=== PATIENT | female | born 1935 ===

== ENCOUNTER 2018-07-25 18:12 | Inpatient (IN) | payer OTHER ==
[~2018-07-25] VITALS: Ht 160 cm; Wt 45.4 kg
[2018-07-25] MEDS ORDERED: INTESTINEX680 M1 (18:19)
[2018-07-25] MEDS ORDERED: PANTOPRAZOLE SO40 MG (18:19)
[2018-07-25] MEDS ORDERED: ROBINUL FORTE2 MG (18:20)
[2018-07-25] MEDS ORDERED: LABETALOL HCL300 MG (18:20)
[2018-07-25] MEDS ORDERED: PAXIL20 MG (18:20)
[2018-07-25] MEDS ORDERED: ALDACTONE25 MG (18:20)
[2018-07-25] MEDS ORDERED: RANITIDINE HCL300 M1 (18:21)
[2018-07-25] MEDS ORDERED: APETIGEN-PLUS1 EACH (18:21)
== END 2018-08-01 16:45 | disposition home or self-care (01) | DRG 392 ==
LOC: ER 18:12 → MEDI 07-26 14:13 → SEC-K 07-26 14:13 → MEDI 07-26 16:18
PROC: BW25Y0Z Computerized Tomography (CT Scan) of Chest, Abdomen and Pelvis using Other Contrast, Unenhanced and Enhanced (ICD-10-PCS; principal; 2018-07-26)
PROC: 3E0F7GC Introduction of Other Therapeutic Substance into Respiratory Tract, Via Natural or Artificial Opening (ICD-10-PCS; 2018-07-29)
DX: K29.00 Acute gastritis without bleeding (principal); E87.1 Hypo-osmolality and hyponatremia; R42 Dizziness and giddiness; I10 Essential (primary) hypertension; E86.0 Dehydration; K59.09 Other constipation

== ENCOUNTER 2018-08-07 04:09 | Emergency (ER) | payer OTHER ==
[~2018-08-07] VITALS: Ht 154.9 cm; Wt 49.9 kg
[~2018-08-07 04:09] MED LIST: ALDACTONE25 MG; APETIGEN-PLUS1 EACH; INTESTINEX680 M1; LABETALOL HCL300 MG; PANTOPRAZOLE SO40 MG; PAXIL20 MG; RANITIDINE HCL300 M1; ROBINUL FORTE2 MG
== END 2018-08-07 09:45 | disposition home or self-care (01) ==
LOC: ER 04:09
DX: K29.60 Other gastritis without bleeding (principal)

== ENCOUNTER 2019-09-25 11:57 | Emergency (ER) | payer OTHER ==
[~2019-09-25] VITALS: Ht 149.9 cm; Wt 61.2 kg
[2019-09-25] MEDS ORDERED: COZAAR25 MG (12:09)
[2019-09-25] MEDS ORDERED: TESSALON PERLE100 M1 (12:09)
== END 2019-09-25 20:09 | disposition home or self-care (01) ==
LOC: ER 11:57
DX: S01.521A Laceration with foreign body of lip, initial encounter (principal); S61.412A Laceration without foreign body of left hand, initial encounter; S61.411A Laceration without foreign body of right hand, initial encounter; W18.09XA Striking against other object with subsequent fall, initial encounter; Y93.89 Activity, other specified; Y99.8 Other external cause status

== ENCOUNTER 2019-09-27 20:36 | Inpatient (IN) | payer OTHER ==
[~2019-09-27] VITALS: Ht 154.9 cm; Wt 59.0 kg
[~2019-09-27 20:36] MED LIST changes: +COZAAR25 MG; +TESSALON PERLE100 M1
[2019-09-27] MEDS ORDERED: PROTONIX40 MG (21:24)
== END 2019-10-03 19:58 | disposition home or self-care (01) | DRG 65 ==
LOC: ER 20:36 → SURH 09-28 14:35
PROVIDERS: ADMIT Internal Medicine
PROC: B030ZZZ Magnetic Resonance Imaging (MRI) of Brain (ICD-10-PCS; principal; 2019-09-28)
PROC: B246ZZZ Ultrasonography of Right and Left Heart (ICD-10-PCS; 2019-09-28)
PROC: B020ZZZ Computerized Tomography (CT Scan) of Brain (ICD-10-PCS; 2019-10-01)
PROC: 4A12X4Z Monitoring of Cardiac Electrical Activity, External Approach (ICD-10-PCS; 2019-10-01)
DX: I60.8 Other nontraumatic subarachnoid hemorrhage (principal); F05 Delirium due to known physiological condition; E87.1 Hypo-osmolality and hyponatremia; F03.90 Unspecified dementia, unspecified severity, without behavioral disturbance, psychotic disturbance, mood disturbance, and anxiety; I49.8 Other specified cardiac arrhythmias; I48.0 Paroxysmal atrial fibrillation; Z79.01 Long term (current) use of anticoagulants; I11.9 Hypertensive heart disease without heart failure
CPT/HCPCS: 70544

== ENCOUNTER 2019-10-31 14:41 | Outpatient (CLI) | payer OTHER ==
[~2019-10-31 14:41] MED LIST changes: +PROTONIX40 MG
[2019-10-31] MEDS ORDERED: WELLBUTRIN SR100 MG (16:19)
[2019-10-31] MEDS ORDERED: PAXIL30 MG (16:20)
== END 2019-10-31 14:43 | disposition home or self-care (01) ==
LOC: MRI 14:41
DX: M06.811 Other specified rheumatoid arthritis, right shoulder (principal); M06.812 Other specified rheumatoid arthritis, left shoulder; R41.82 Altered mental status, unspecified
CPT/HCPCS: 70551

== ENCOUNTER 2019-10-31 16:08 | Emergency (ER) | payer OTHER ==
[~2019-10-31] VITALS: Ht 154.9 cm; Wt 59.0 kg
[2019-10-31] MEDS ORDERED: WELLBUTRIN SR100 MG (16:19)
[2019-10-31] MEDS ORDERED: PAXIL30 MG (16:20)
== END 2019-11-01 05:00 | disposition designated cancer center or children's hospital (05) ==
LOC: ER 16:08
DX: S43.084A Other dislocation of right shoulder joint, initial encounter (principal); X50.0XXA Overexertion from strenuous movement or load, initial encounter; Y93.89 Activity, other specified; Y92.89 Other specified places as the place of occurrence of the external cause; Y99.8 Other external cause status